=== PATIENT | female | born 1995 | race Caucasian/White ===

== ENCOUNTER 2019-12-07 09:15 | Emergency (ER) | payer MEDICAID ==
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
[2019-12-07] MEDS ORDERED: diphenhydrAMINE INJ 50 MG/ML VIAL IM STA (10:43)
[2019-12-07] MEDS ORDERED: ONDANSETRON ODT 4 MG TABLET TL STA (10:43)
[2019-12-07] MEDS ORDERED: FAMOTIDINE 20 MG TABLET PO STA (10:44)
[2019-12-07 11:31] LABS: HCG UR QUAL NEGATIVE
[2019-12-07 12:17] LABS: CLARITY,URINE CLOUDY (CLEAR); LEUKOCYTE ESTERASE, URINE TRACE (NEGATIVE); NITRITE,URINE POSITIVE (NEGATIVE); PH,URINE 6.5 PH (5.0-7.5); PROTEIN,URINE 100 mg/dL (NEGATIVE); UROBILINOGEN,URINE 1 (NORMAL) E.U./dL (NORMAL)
[2019-12-07 12:18] LABS: GLUCOSE, URINE (UA) NEGATIVE (NEGATIVE); KETONES,URINE (UA) 40 mg/dL (NEGATIVE); OCCULT BLOOD,URINE LARGE (NEGATIVE)
[2019-12-07 12:20] LABS: BILIRUBIN,URINE NEGATIVE (NEGATIVE); ICTOTEST,URINE NEGATIVE
[2019-12-07 12:33] LABS: BACTERIA,URINE Moderate /HPF (None Seen); RBC,URINE TNTC /HPF (0-5); SQUAMOUS EPITHELIAL CELL,UR MANY Squamous (<= Few)
--- NOTE | 2019-12-07 13:29 | Ultrasound Report ---
PROCEDURE: Pelvic w/Transvag+Doppler Comp INDICATIONS: pelvic pain, R TECHNIQUE: Real-time scanning was performed of the pelvic organs, with image documentation. Additional endovagi nal scanning was necessary due to incomplete visualization of the adnexal and endometrial structures by transabdominal scanning. COMPARISON: None. FINDINGS: Transabdominal scanning: Limited scanning through the kidneys shows no hydronephrosis. No pathologi c free abdominal or pelvic fluid. Endovaginal scanning: Uterus: Uterus is normal in size at 8.4 x 3.6 x 4.6 cm. The endometrium measures 7 mm in combined t hickness. Ovaries: Right ovary measures 3.2 x 1.7 x 1.8 cm. The left ovary measures 3.3 x 1.8 x 1.8 cm. Dopple r interrogation demonstrates expected waveforms bilaterally within the ovaries. There is physiologic follicular change. IMPRESSION: Grossly unremarkable examination as above. Reviewed by: Quique Gaffney MD on 12/07/2019 1:27 PM PDT Approved by: Quique Gaffney MD on 12/07/2019 1:27 PM PDT Station ID: [id number]
[2019-12-07 14:02] VITALS: BP 140/90
== END 2019-12-07 14:01 | disposition home or self-care (01) ==
LOC: ED 09:15
DX: R11.2 Nausea with vomiting, unspecified (principal)
CPT/HCPCS: 36415; 76830; 76856; 81001; 81025; 84702; 93975; 96374; 99284; A9270; J1200; Q0162; 81003; 87086